=== PATIENT | female | born 1960 | race American Indian/Alaskan Native ===

== ENCOUNTER 2020-10-14 10:58 | Emergency (ER) | payer MEDICAID ==
[2020-10-14 11:35] VITALS: BP 171/99
[2020-10-14] MEDS ORDERED: LIDOCAINE 5% 1 EACH PATCH TD STA (13:37)
[2020-10-14] MEDS ORDERED: KETOROLAC 60 MG/2 ML INJ IM ONE (13:37)
--- NOTE | 2020-10-14 13:38 | Emergency Department Report ---
ED Back Pain/Injury HPI - General Chief Complaint: Back Pain/Injury Stated Complaint: ABDOMINAL/BACK PAIN Time Seen by Provider: 10/14/20 13:28 Source: patient Limitations: No Limitations - History of Present Illness Initial Comments: 59 year old female with pmhx of DM, HTN and chronic low back pain presents to ED with c/o pain to her lower back. Patient states that pain flared up about 5 days ago. She states its constant and radiates into her lower abdomen, buttocks and thigh. She reports numbness/tingling down into both legs to about her calf. She states pain is worse with any movement including walking. She states she went to an urgent care and they told her that her symptoms were likely related to sciatica. She states they gave her a "shot" which helped for only a day or 2 but she never got prescriptions. She finally admitted that she had MRI of her lower about 2 months ago which was order by "health education specialist". States she had gotten into an accident in June and since then she has been having pain in her lower back. She states that when she had the MRI of the specialist told her that the accident aggravated her degenerative disc disease in her lower back. She has not followed up with the health education specialist since. She denies any bowel or bladder incontinence, lower extremity weakness, UTI symptoms, nausea, vomiting, or any other symptoms at this time. MD Complaint: back pain -: Gradual, days(s) (5) Similar Symptoms Previously: Yes - Related Data Previous Rx's Medication Instructions Recorded Last Taken Type HYDROcodone/APAP 5-325 [[place] 1 each PO Q4HR PRN #10 tablet 10/14/20 Unknown Rx 5/325] Ibuprofen [Motrin] 800 mg PO Q8HR PRN #30 tablet 10/14/20 Unknown Rx methOCARBAMOL [Robaxin TAB] 750 mg PO Q8H PRN #30 tablet 10/14/20 Unknown Rx Allergies Allergy/AdvReac Type Severity Reaction Status Date / Time No Known Allergies Allergy Verified 10/14/20 13:40 ED Review of Systems ROS: Stated complaint: ABDOMINAL/BACK PAIN Other details as noted in HPI Comment: All other systems reviewed and negative Constitutional: denies: chills, fever Eyes: denies: eye pain, eye discharge, vision change Respiratory: denies: cough, shortness of breath, SOB with exertion, SOB at rest, wheezing Cardiovascular: denies: chest pain, palpitations, dyspnea on exertion, edema, syncope, paroxysmal nocturnal dyspnea Gastrointestinal: denies: abdominal pain, nausea, vomiting, diarrhea, constipation, hematemesis, melena Genitourinary: denies: urgency, dysuria, frequency, hematuria, discharge, abnormal menses Musculoskeletal: back pain, myalgia. denies: joint swelling, arthralgia Skin: denies: rash, lesions Neurological: denies: headache, weakness, numbness, paresthesias, confusion, abnormal gait, vertigo, other Psychiatric: denies: anxiety, depression, auditory hallucinations, visual hallucinations, homicidal thoughts Hematological/Lymphatic: denies: easy bleeding, easy bruising ED Past Medical Hx - Past Medical History Previous Medical History?: Yes Hx Diabetes: Yes Hx Seizures: Yes Additional medical history: fibromyalgia - Surgical History Past Surgical History?: No - Medications Home Medications: Home Medications Medication Instructions Recorded Confirmed Last Taken Type HYDROcodone/APAP 5-325 [[place] 1 each PO Q4HR PRN #10 tablet 10/14/20 Unknown Rx 5/325] Ibuprofen [Motrin] 800 mg PO Q8HR PRN #30 tablet 10/14/20 Unknown Rx methOCARBAMOL [Robaxin TAB] 750 mg PO Q8H PRN #30 tablet 10/14/20 Unknown Rx ED Physical Exam - General Limitations: No Limitations General appearance: alert, in distress (pt appears uncomfortable due to pain ) - Head Head exam: Present: atraumatic, normocephalic, normal inspection - Eye Eye exam: Present: normal appearance, PERRL, EOMI Pupils: Present: normal accommodation - ENT ENT exam: Present: normal exam, mucous membranes moist - Neck Neck exam: Present: normal inspection, full ROM - Respiratory Respiratory exam: Present: normal lung sounds bilaterally. Absent: respiratory distress, wheezes, rales, rhonchi - Cardiovascular Cardiovascular Exam: Present: regular rate, normal rhythm, normal heart sounds - GI/Abdominal GI/Abdominal exam: Present: soft. Absent: tenderness, guarding, rebound - Extremities Exam Extremities exam: Present: normal inspection, full ROM, normal capillary refill, calf tenderness (right ). Absent: pedal edema, joint swelling - Back Exam Back exam: Present: normal inspection, paraspinal tenderness (mainly left lower lumbar and SI notch ttp), vertebral tenderness (lower lumbar). Absent: full ROM (pain with flex and ext causing mild reduction in flex and ext), CVA tenderness (R), CVA tenderness (L) - Neurological Exam Neurological exam: Present: alert, oriented X3, CN II-XII intact, normal gait - Psychiatric Psychiatric exam: Present: normal affect, normal mood - Skin Skin exam: Present: intact ED Course Vital Signs 10/14/20 11:34 Temperature 98.4 F Pulse Rate 71 Respiratory 18 Rate Blood Pressure 171/99 [Right] O2 Sat by Pulse 98 Oximetry ED Medical Decision Making - Radiology Data Radiology results: report reviewed Patient: DANA GRUBBS MR#: [id number] : 1960 Acct:[id number] Age/Sex: 59 / F ADM Date: 10/14/20 Loc: ED Attending Dr: Ordering Physician: SONIA BRODERICK Date of Service: 10/14/20 Procedure(s): VL venous duplex LE RT Accession Number(s): [id number] cc: SONIA BRODERICK DUPLEX DOPPLER LOWER EXTREMITY VEINS, RIGHT INDICATION / CLINICAL INFORMATION: Right calf pain. TECHNIQUE: Duplex doppler imaging was performed through the veins of the right lower extremity using venous compression and other maneuvers. COMPARISON: None available. FINDINGS: RIGHT COMMON FEMORAL VEIN: Negative. RIGHT FEMORAL VEIN: Negative. RIGHT POPLITEAL VEIN: Negative. RIGHT CALF VEINS: Negative. ADDITIONAL FINDINGS: There is no evidence of a popliteal cyst or other signif icant abnormality. IMPRESSION: No sonographic evidence for DVT in the right lower extremity. Signer Name: Cole Avilez MD Signed: 10/14/2020 2:31 PM Workstation Name: [id number] Transcribed By: RT Dictated By: Cole Avilez MD Electronically Authenticated By: Cole Avilez MD Signed Date/Time: 10/14/201430 DD/ 30 TD/TT: - Medical Decision Making The patient presented with flareup of her low back pain. Urinalysis unremarkable. Venous Doppler of the right lower extremity normal. The patient is currently resting and, is alert, talkative, interactive and in no distress. The patient is neurologically intact and is ambulatory in the ED. the patient has no fever, no bowel or bladder incontinence, no saddle anesthesia and is otherwise alert and well-appearing. Her history, physical examination and diagnostic testing does not suggest the presence of acute spinal epidural abscess, acute epidural bleed, cauda equina syndrome, abdominal/thoracic aortic aneurysm, aortic dissection or other acute process requiring further testing, treatment or consultation in the emergency department. Her vital signs have been stable. The patient condition is stable and appropriate for discharge. The patient will pursue further outpatient evaluation with the primary care physician or other designated or consulting physician as indicated in the discharge instructions. Critical care attestation.: If time is entered above; I have spent that time in minutes in the direct care of this critically ill patient, excluding procedure time. ED Disposition Clinical Impression: Lumbar radiculopathy Disposition: TO HOME OR SELFCARE Is pt being admited?: No Does the pt Need Aspirin: No Condition: Stable Instructions: Radicular Pain Additional Instructions: Take the Motrin, the Robaxin and [place] as prescribed. It is important that you follow-up with the health education specialist on your discharge instructions below the one that you previously saw for further evaluation of your lower back. Return to t ER if your symptoms changes or worsens in any way. Prescriptions: Ibuprofen [Motrin] 800 mg PO Q8HR PRN #30 tablet PRN Reason: Pain HYDROcodone/APAP 5-325 [[place] 5/325] 1 each PO Q4HR PRN #10 tablet PRN Reason: Pain methOCARBAMOL [Robaxin TAB] 750 mg PO Q8H PRN #30 tablet PRN Reason: Pain/spasm Referrals: ARSENIO ANGEL MD [Staff Physician] - 3-5 Days [facility] [Other] - 3-5 Days Time of Disposition: 14:56
--- NOTE | 2020-10-14 14:36 | Vascular Lab Report ---
DUPLEX DOPPLER LOWER EXTREMITY VEINS, RIGHT INDICATION / CLINICAL INFORMATION: Right calf pain. TECHNIQUE: Duplex doppler imaging was performed through the veins of the right lower extremity using venous comp ression and other maneuvers. COMPARISON: None available. FINDINGS: RIGHT COMMON FEMORAL VEIN: Negative. RIGHT FEMORAL VEIN: Negative. RIGHT POPLITEAL VEIN: Negative. RIGHT CALF VEINS: Negative. ADDITIONAL FINDINGS: There is no evidence of a popliteal cyst or other significant abnormality. IMPRESSION: No sonographic evidence for DVT in the right lower extremity. Signer Name: Cole Avilez MD Signed: 10/14/2020 2:31 PM Workstation Name: [id number]
[2020-10-14 15:05] LABS: Bilirubin,Urine NEG (Negative); Blood,Urine NEG (Negative); Color,Urine Yellow (Yellow); Mucus,Urine FEW /HPF; Protein,Urine <15 mg/dL mg/dL (Negative); Urobilinogen,Urine < 2.0 mg/dL (<2.0)
== END 2020-10-14 15:00 | disposition home or self-care (01) ==
LOC: ED 10:58
DX: M54.16 Radiculopathy, lumbar region (principal); E11.9 Type 2 diabetes mellitus without complications; R56.9 Unspecified convulsions; Z79.1 Long term (current) use of non-steroidal anti-inflammatories (NSAID); Z79.899 Other long term (current) drug therapy
CPT/HCPCS: 81001; 93971; 96372; 99284; J1885

== ENCOUNTER 2021-03-01 00:04 | Emergency (ER) | payer MEDICAID | END 2021-03-01 08:19 | disposition left against medical advice (07) | LOC: ED 00:04 | DX: R51.9 Headache, unspecified (principal); Z53.21 Procedure and treatment not carried out due to patient leaving prior to being seen by health care provider ==

== ENCOUNTER 2022-01-29 08:41 | Emergency (ER) | payer MEDICAID ==
[2022-01-29] MEDS ORDERED: KETOROLAC 30 MG/1 ML INJ IM ONE (09:08)
[2022-01-29] MEDS ORDERED: diazePAM 5 MG TAB PO ONE (09:08)
[2022-01-29] MEDS ORDERED: HYDROcodone/ACETAMINOPHEN 5-325 MG TAB PO ONE (09:08)
[2022-01-29] MEDS ORDERED: methylPREDNISolone Sod Succinate 40 MG/1 ML INJ IM ONE (09:08)
[2022-01-29] MEDS ORDERED: ACETAMINOPHEN 325 MG TAB PO ONE (09:08)
[2022-01-29] MEDS ORDERED: CYCLOBENZAPRINE 10 MG TAB PO ONE (09:08)
--- NOTE | 2022-01-29 09:17 | Emergency Department Report ---
ED General Adult HPI - General Chief complaint: Back Pain/Injury Stated complaint: LEFT SIDE BACK PAIN Time Seen by Provider: 01/29/22 08:59 Source: patient, EMS Mode of arrival: Stretcher Limitations: Physical Limitation - History of Present Illness Initial comments: This is a pleasant 61-year-old female with medical history of sciatica started 5 years ago who denies any lower back injury or trauma in the past. Patient also has a history of fibromyalgia and also diabetes as well as hypertension also hyperlipidemia and also migraine. Patient brought in by EMS today with concerns of lower left back pain for the past 2 days that has been getting worse. She denies any recent trauma or injury. Patient denies any radiating numbness down her left leg which is different from the nurse triage note. Patient denies any saddle anesthesia or bowel or bladder incontinence. Patient denies any other discomfort. According to patient any movement of her lower back makes the left lower back pain worse. Patient also endorsed lifting the left lower leg makes the left lower back pain worse as well. Patient denies any fever chill night sweat dizziness blurred vision lightheadedness headache tinnitus ear pain runny nose sore throat loss of taste loss of smell chest pain palpitation short breath cough abdominal pain nausea vomiting diarrhea constipation joint pain new rash and heat or cold intolerance. Severity scale (0 -10): 8 - Related Data Previous Rx's Medication Instructions Recorded Last Taken Type HYDROcodone/APAP 5-325 [[place] 1 each PO Q4HR PRN #10 tablet 10/14/20 Unknown Rx 5/325] Ibuprofen [Motrin] 800 mg PO Q8HR PRN #30 tablet 10/14/20 Unknown Rx methOCARBAMOL [Robaxin TAB] 750 mg PO Q8H PRN #30 tablet 10/14/20 Unknown Rx Cyclobenzaprine HCl [Flexeril 5 MG 5 mg PO TID #12 tab 01/29/22 Unknown Rx TAB] HYDROcodone/APAP 5-325 [[place] 1 each PO Q4HR PRN #6 tablet 01/29/22 Unknown Rx 5/325] Allergies Allergy/AdvReac Type Severity Reaction Status Date / Time morphine Allergy Unknown Verified 01/29/22 08:50 ED Review of Systems ROS: Stated complaint: LEFT SIDE BACK PAIN Other details as noted in HPI Comment: All other systems reviewed and negative ED Past Medical Hx - Past Medical History Previous Medical History?: Yes Hx Hypertension: Yes Hx Diabetes: Yes Hx Seizures: Yes Additional medical history: fibromyalgia - Medications Home Medications: Home Medications Medication Instructions Recorded Confirmed Last Taken Type HYDROcodone/APAP 5-325 [[place] 1 each PO Q4HR PRN #10 tablet 10/14/20 Unknown Rx 5/325] Ibuprofen [Motrin] 800 mg PO Q8HR PRN #30 tablet 10/14/20 Unknown Rx methOCARBAMOL [Robaxin TAB] 750 mg PO Q8H PRN #30 tablet 10/14/20 Unknown Rx Cyclobenzaprine HCl [Flexeril 5 MG 5 mg PO TID #12 tab 01/29/22 Unknown Rx TAB] HYDROcodone/APAP 5-325 [[place] 1 each PO Q4HR PRN #6 tablet 01/29/22 Unknown Rx 5/325] ED Physical Exam - General Limitations: Physical Limitation General appearance: alert, other (Appears to be in uncomfortableness.) - Head Head exam: Present: atraumatic, normocephalic, normal inspection - Eye Eye exam: Present: normal appearance, PERRL, EOMI Pupils: Present: normal accommodation - ENT ENT exam: Present: normal exam - Neck Neck exam: Present: normal inspection, full ROM - Respiratory Respiratory exam: Present: normal lung sounds bilaterally - Cardiovascular Cardiovascular Exam: Present: regular rate - GI/Abdominal GI/Abdominal exam: Present: soft. Absent: distended, tenderness, guarding, rebound - Extremities Exam Extremities exam: Present: normal capillary refill, other (RAISING THE LEFT LEG MAKES THE LEFT LOWER BACK PAIN WORSE. ABLE TO DORASAL AND PLANTAR FOOT BILATEARLLY.). Absent: tenderness, pedal edema - Back Exam Back exam: Present: normal inspection, full ROM, tenderness (LEFT PARAPSINAL MUSCLE TIGHTNESS. ) - Neurological Exam Neurological exam: Present: alert, oriented X3, CN II-XII intact - Psychiatric Psychiatric exam: Present: normal affect, normal mood - Skin Skin exam: Present: warm, normal color ED Course Vital Signs 01/29/22 08:46 Temperature 97.6 F Pulse Rate 85 Respiratory 16 Rate Blood Pressure 172/94 [Left] O2 Sat by Pulse 100 Oximetry Critical care attestation.: If time is entered above; I have spent that time in minutes in the direct care of this critically ill patient, excluding procedure time. ED Disposition Clinical Impression: Lumbar paraspinal muscle spasm Disposition: HOME / SELF CARE / HOMELESS Is pt being admited?: No Does the pt Need Aspirin: No Condition: Stable Instructions: Muscle Cramps and Spasms, [id number] Additional Instructions: Take muscle relaxant medication and pain medication as prescribed. Make a follow-up appoint with your primary care provider to be seen within 3 days for further outpatient evaluation. Prescriptions: Cyclobenzaprine HCl [Flexeril 5 MG TAB] 5 mg PO TID #12 tab HYDROcodone/APAP 5-325 [[place] 5/325] 1 each PO Q4HR PRN #6 tablet PRN Reason: Pain Forms: Work/School Excuse Out Patient, Work/School Release Form(ED) Time of Disposition: 09:21
[2022-01-29 11:20] VITALS: BP 150/76
== END 2022-01-29 11:20 | disposition home or self-care (01) ==
LOC: ED 08:41
DX: M62.830 Muscle spasm of back (principal); M54.50 Low back pain, unspecified; I10 Essential (primary) hypertension; E11.9 Type 2 diabetes mellitus without complications; M79.7 Fibromyalgia; Z88.5 Allergy status to narcotic agent; Z79.899 Other long term (current) drug therapy
CPT/HCPCS: 96372; 99283; J1885; J2920